=== PATIENT | female | born 1980 | race Caucasian/White ===

== ENCOUNTER 2016-09-24 12:52 | Emergency (ER) | payer MEDICAID, OTHER ==
[~2016-09-24] VITALS: Ht 165.1 cm; Wt 51.5 kg
[~2016-09-24 12:52] MED LIST: PRENAT PO
[2016-09-24 13:08] VITALS: Ht 165.1 cm; Wt 51.5 kg
[2016-09-24] MEDS ORDERED: ACETAMINOPHEN 325 MG TAB PO ONE (15:00)
--- NOTE | 2016-09-24 15:35 | RADRPT ---
PROCEDURE: XR Cervical Spine. CLINICAL INDICATION: Neck pain TECHNIQUE: 4 views of the cervical spine were performed. [facility] COMPARISON: None. FINDINGS: The normal cervical lordosis is well maintained. Alignment is intact. There is no evidence of acut e fracture or dislocation. Vertebral body heights are well maintained. Intervertebral disc heights are well maintained. The odontoid is well centered within the lateral masses of C1. The preverteb ral soft tissues are within normal limits. IMPRESSION: 1. Unremarkable cervical spine x-rays series. RPTAT: KK .Dhruv Cobb MD, MD Date Time Electronically viewed and signed by .Dhruv Cobb MD, MD on 09/24/2016 15:35 .B/
[2016-09-24] MEDS ORDERED: TRAM50TA2 PO (15:52)
[2016-09-24] MEDS ORDERED: CYCL-319 PO (15:52)
--- NOTE | 2016-09-24 15:55 | ERD ---
ER Documentation Chief Complaint Date/Time DATE: 09/24/16 TIME: 15:53 Chief Complaint NUMBNESS IN RIGHT LEG WITH TINGLING X 3 WEEKS,W/ RT ARM HAND TINGLING TODAY HPI This 36-year-old female complains of some paresthesias in her right hand and intermittently in her right leg. She has a history of trauma. She does have some pain in her neck as well. She denies any fevers, vomiting, shortness breath or chest pain. She denies bowel or bladder incontinence. Patient is worried that it might be related to high cholesterol and is worried that she has not had it checked in a while. ROS All systems reviewed and are negative except as per history of present illness. Medications Home Meds Active Scripts Cyclobenzaprine Hcl* (Cyclobenzaprine Hcl*) 10 Mg Tablet, 10 MG PO TID, #15 TAB Prov:BERNA LUX MD 09/24/16 Tramadol HCl (Tramadol HCl) 50 Mg Tablet, 50 MG PO Q4 Y for PAIN, #20 TAB Prov:BERNA LUX MD 09/24/16 Reported Medications Multivit/Min/Fol Ac/Iron/Pren* ( S*) 1 Tab Tab, 1 TAB PO DAILY, TAB 02/02/16 Allergies Allergies: Coded Allergies: Penicillins (Verified Allergy, Intermediate, SHORT OF BREATH, 09/24/16) PMhx/Soc Medical and Surgical Hx: pt denies Surgical Hx History of Surgery: No Anesthesia Reaction: No Hx Neurological Disorder: No Hx Respiratory Disorders: No Hx Cardiac Disorders: Yes (hypercholesterolemia) Hx Psychiatric Problems: No Hx Miscellaneous Medical Probl: No Hx Alcohol Use: No Hx Substance Use: No Hx Tobacco Use: No Smoking Status: Never smoker Physical Exam Vitals Vital Signs Date Time Temp Pulse Resp B/P Pulse Ox O2 Delivery O2 Flow Rate FiO2 09/24/16 13:08 98.2 73 20 126/62 100 Physical Exam Const: [] Alert, [id number] per Head: Atraumatic Eyes: Normal Conjunctiva ENT: Normal External Ears, Nose and Mouth. Neck: Full range of motion..~ No meningismus. Mild pain in the base of the right cervical paraspinous muscles without midline tenderness or deformities. Resp: Clear to auscultation bilaterally Cardio: Regular rate and rhythm, no murmurs Abd: Soft, non tender, non distended. Normal bowel sounds Skin: No petechiae or rashes Back: No midline or flank tenderness Ext: No cyanosis, or edema Neur: Awake and alert. Cranial nerves II through XII grossly intact. Normal gait. No cerebellar signs Psych: Normal Mood and Affect Results 24 hrs Current Medications Medications (Trade) Dose Ordered Sig/Jonn Route PRN Reason Start Time Stop Time Status Last Admin Dose Admin Acetaminophen (Tylenol Tab) 650 mg ONCE ONCE PO 09/24/16 15:00 09/24/16 15:01 DC Procedures/MDM X-ray C spine 3V Interpreted by me: Bones: [No fracture] Joints: [No dislocation] Foreign body: [None]. Impression have a normal C-spine x-ray Patient was given Tylenol for pain. Patient has paresthesias in the right upper and right lower extremity is intermittently associated with some neck discomfort. I suspect she has cervical radicular symptoms. Signs and symptoms do not suggest myelopathy, epidural abscess, cauda equina syndrome or neurologic deficit. She will treated with ibuprofen and further observation at home. Patient is advised to follow-up with primary doctor for cholesterol testing and primary care. She should have the ER for new or worsening symptoms Departure Diagnosis: Primary Impression: Radicular pain Additional Impression: Numbness Condition: Stable Patient Instructions: Radiculopathy, Cervical, Paraesthesias Referrals: [facility] Usted se parish hecho un examen mdico de control que le indica que no est en stefanie condicin que requiera tratamiento urgente en el Departamento de Emergencia. Un estudio ms profundo y el tratamiento de parmar condicin pueden esperar sin ningn riesgo hasta que usted sea atendida/o en el consultorio de parmar mdico o stefanie cl porter. Es responsabilidad suya arreglar stefanie tomas para el seguimiento del zuleima. MANEJO DE CONDICIONES NO URGENTES EN EL FUTURO 1) Si usted tiene un mdico de atencin primaria: Usted debera llamar a parmar mdico de atencin primaria antes de venir al departamento de emergencia. Despus de las horas de consultorio, parmar doctor o parmar asociado/a est disponible por telfono. El mdico o enfermero de tramaine en el servicio telefnico puede asesorarle por rocco medio para atender el problema, o zuleima contrario se puede programar stefanie tomas. 2) Si usted no tiene un mdico de atencin primaria: Llame al mdico o clnica de referencia que aparece abajo eliane las horas de consultorio para hacer stefanie tomas para que le vean. CLINICAS: [place] [id number] [phone] [facility] [phone] [place] [address] [phone] [place] [address] [phone] [place] [address] [phone] [facility]. [phone] [address] Additional Instructions: PROBABLAMENTE SIMPTOMAS ES DEL NERVIO DE LA NUCHA. Examines normal hoy. Cheque otro vez con parmar doctor primario en el proximo martinez or regresa para mas o nueva simptomas. CONTINUA IBUPROFEN CADA 6 HORAS. BERNA LUX MD September 24, 2016 15:55
[2016-09-24] MEDS ORDERED: IBUP400T22 PO (15:56)
== END 2016-09-24 16:09 | disposition home or self-care (01) ==
LOC: FTE 12:52
DX: M54.12 Radiculopathy, cervical region (principal)
CPT/HCPCS: 72040; Z7610

== ENCOUNTER 2017-04-01 18:18 | Emergency (ER) | payer MEDICAID, OTHER ==
[~2017-04-01] VITALS: Ht 170.2 cm; Wt 70.0 kg
[~2017-04-01 18:18] MED LIST changes: +IBUP400T22 PO
[2017-04-01 18:29] VITALS: Ht 170.2 cm; Wt 70.0 kg
[2017-04-01] MEDS ORDERED: SOD CHLORIDE 0.9% 1,000 ML IV STA ×2 (18:44→19:28)
[2017-04-01] MEDS ORDERED: IBUPROFEN 800 MG TAB PO ONE (19:00)
[2017-04-01 19:04] LABS: ABNORMAL IP MESSAGE 1; BASOPHILS % 0.1 % (0.0-2.0); HEMATOCRIT 37.1 % (37.0-47.0); HEMOGLOBIN 12.9 g/dl (12.0-16.0); LYMPHOCYTES # 0.3 10^3/ul (0.8-2.9); LYMPHOCYTES % 2.8 % (15.0-51.0); MEAN CORPUSCULAR HGB CONC 34.8 g/dl (32.0-37.0); MEAN CORPUSCULAR VOLUME 86.3 fl (82.0-101.0); MEAN PLATELET VOLUME 10.1 fl (7.4-10.4); MONOCYTE # 0.4 10^3/ul (0.3-0.9); MONOCYTES % 4.2 % (0.0-11.0); NEUTROPHIL # 9.7 10^3/ul (1.6-7.5); NEUTROPHILS % 92.4 % (39.0-77.0); PLATELET COUNT 158 10^3/UL (140-415); RED CELL DISTRIBUTION WIDTH 13.2 % (11.5-14.5); WHITE BLOOD COUNT 10.5 10^3/ul (4.8-10.8)
[2017-04-01 19:08] LABS: POSITIVE DIFF @See below
[2017-04-01 19:26] LABS: ALBUMIN 4.8 g/dl (3.3-4.9); ALBUMIN/GLOBULIN RATIO 1.77; BILIRUBIN,INDIRECT 1.7 mg/dl (0-1.1); BILIRUBIN,TOTAL 1.7 mg/dl (0.2-1.3); CALCIUM 9.7 mg/dl (8.4-10.2); CREATININE 0.69 mg/dl (0.44-1.00); POTASSIUM 3.5 mmol/L (3.5-5.1); TOTAL PROTEIN 7.5 g/dl (6.1-8.1)
[2017-04-01] MEDS ORDERED: CEFTRIAXONE 1 GM/50 ML (PMX) 50 ML IVPB ONE (19:30)
--- NOTE | 2017-04-01 19:35 | ERD ---
ER Documentation Chief Complaint Chief Complaint HAS NUMBNESS IN HER HPI This is a 36-year-old female who presents to the emergency room for evaluation of breast pain. The patient states that she is breast-feeding at this time and states that she noticed pain in both breasts and came to the ER today for evaluation. She states the pain in the left breast is slightly worse than the pain in the right, states that she did have a fever today and took Tylenol. She denies any medical problems and came to the ER today for evaluation. She denies any drainage from the breast, denies any chills and denies any aggravating or relieving factors for her symptoms at this time. She describes her pain as an achy pain rated at 2/10 currently ROS All systems reviewed and are negative except as per history of present illness. Medications Home Meds Active Scripts Ibuprofen* (Motrin*) 400 Mg Tab, 400 MG PO Q6, #20 TAB Prov:BERNA LUX MD 09/24/16 Reported Medications Multivit/Min/Fol Ac/Iron/Pren* ( S*) 1 Tab Tab, 1 TAB PO DAILY, TAB 02/02/16 Allergies Allergies: Coded Allergies: Penicillins (Verified Allergy, Intermediate, SHORT OF BREATH, 09/24/16) PMhx/Soc History of Surgery: No Anesthesia Reaction: No Hx Neurological Disorder: No Hx Respiratory Disorders: No Hx Cardiac Disorders: Yes (hypercholesterolemia) Hx Psychiatric Problems: No Hx Miscellaneous Medical Probl: No Hx Alcohol Use: No Hx Substance Use: No Hx Tobacco Use: No Smoking Status: Never smoker Physical Exam Vitals Vital Signs Date Time Temp Pulse Resp B/P Pulse Ox O2 Delivery O2 Flow Rate FiO2 04/01/17 18:29 99.5 131 15 119/75 100 Physical Exam INITIAL VITAL SIGNS: Reviewed by me GENERAL: The patient is well developed and appropriate for usual state of health in no apparent distress HEENT: Pupils equal, round, and reactive to light. EOMI. There is no scleral icterus. NECK: C-spine is soft and supple, there is no meningismus. There is no cervical lymphadenopathy. LUNGS: Clear to auscultation bilaterally. There are no rales, wheezes or rhonchi. HEART: Tachycardic, no murmurs, clicks, rubs or gallops. ABDOMEN: Soft, non-tender, non-distended. There are bowel sounds in all four quadrants. No rebound or guarding. EXTREMITIES: There is no peripheral cyanosis or edema. No focal swelling or erythema. NEUROLOGICAL: The patient moves all four extremities with 5/5 strength. Cranial nerves II - XII are intact. Normal gait. Alert and oriented SKIN: Mild erythema noted about the left areola, no abscess formation, no inverted nipple, no drainage, there is no apparent rash or petechiae. HEME/LYMPHATIC: There is no evidence of excessive bruising or lymphedema. PSYCHIATRIC: The patient is moderately anxious Result Diagram: 04/01/17184404/01/171844 Results 24 hrs Laboratory Tests Test 04/01/17 18:45 White Blood Count 10.510^3/ul Red Blood Count 4.3010^6/ul Hemoglobin 12.9g/dl Hematocrit 37.1% Mean Corpuscular Volume 86.3fl Mean Corpuscular Hemoglobin 30.0pg Mean Corpuscular Hemoglobin Concent 34.8g/dl Red Cell Distribution Width 13.2% Platelet Count 08934^3/UL Mean Platelet Volume 10.1fl Neutrophils % 92.4% Lymphocytes % 2.8% Monocytes % 4.2% Eosinophils % 0.0% Basophils % 0.1% Nucleated Red Blood Cells % 0.0/100WBC Neutrophils # 9.710^3/ul Lymphocytes # 0.310^3/ul Monocytes # 0.410^3/ul Eosinophils # 0.010^3/ul Basophils # 0.010^3/ul Nucleated Red Blood Cells # 0.010^3/ul Sodium Level 139mmol/L Potassium Level 3.5mmol/L Chloride Level 102mmol/L Carbon Dioxide Level 21mmol/L Anion Gap 20 Blood Urea Nitrogen 11mg/dl Creatinine 0.69mg/dl Glucose Level 113mg/dl Calcium Level 9.7mg/dl Total Bilirubin 1.7mg/dl Direct Bilirubin 0.00mg/dl Indirect Bilirubin 1.7mg/dl Aspartate Amino Transf (AST/SGOT) 22IU/L Alanine Aminotransferase (ALT/SGPT) 27IU/L Alkaline Phosphatase 67IU/L Total Protein 7.5g/dl Albumin 4.8g/dl Globulin 2.70g/dl Albumin/Globulin Ratio 1.77 Current Medications Medications (Trade) Dose Ordered Sig/Jonn Route PRN Reason Start Time Stop Time Status Last Admin Dose Admin Sodium Chloride (NS) 1,000 ml @ 1,000 mls/hr Q1H STAT IV 04/01/17 18:44 04/01/17 19:43 04/01/17 19:21 Ibuprofen 800 mg 800 mg ONCE ONCE PO 04/01/17 19:00 04/01/17 19:01 DC 04/01/17 19:21 Ceftriaxone Sodium 50 ml @ 100 mls/hr ONCE ONCE IVPB 04/01/17 19:30 04/01/17 19:59 Sodium Chloride (NS) 1,000 ml @ 1,000 mls/hr Q1H STAT IV 04/01/17 19:28 04/01/17 20:27 Procedures/MDM Chest X-ray 1V Interpreted by me: Soft Tissue: No acute abnormalities Bones: No acute abnormalities Mediastinum/Cardiac Silhouette/Lungs: [No acute abnormalities] This 36-year-old female presents to the emergency room for evaluation of breast pain. This patient is breast-feeding at this time and states that she did have a fever yesterday. On my examination this patient is afebrile, however she was tachycardic and moderately anxious. Lab work was obtained which does not show any sign of leukocyte ptosis. Her chest x-ray is clear, influenza is negative at this time. The patient was given 2 L of IV fluid for tachycardia. Her heart rate is now 100 bpm down from 131 bpm. She was given 1 g Rocephin. The patient likely suffering from mastitis without dissemination of infection. She was advised to continue breast-feeding and she will be discharged home at this time with a prescription for Keflex. Patient is okay to plan of care and was advised she can return to the ER any moment for reevaluation if her symptoms worsen and she verbalized understanding. Departure Diagnosis: Primary Impression: Acute mastitis Condition: Stable GIOVANYFRIEDA CAMARILLOTALITA JETT Apr 01, 2017 19:35
[2017-04-01] MEDS ORDERED: CEPH-443 PO (19:36)
--- NOTE | 2017-04-01 20:02 | RADRPT ---
PROCEDURE: XR Chest. CLINICAL INDICATION: Fever, cough TECHNIQUE: 2 frontal views of the chest COMPARISON: No prior study is available for comparison. FINDINGS: The lungs are clear. The heart size is normal. There is no pleural effusion. There is no pneumothorax. There is no acute osseous abnormality. IMPRESSION: 1. No acute cardiopulmonary findings. RPTAT: UU .Jonathon Garcia MD, MD Date Time Electronically viewed and signed by .Jonathon Garcia MD, on 04/01/2017 20:01 .K/
[2017-04-01 20:12] LABS: ADD UMIC YES; UR ASCORBIC ACID NEGATIVE (NEGATIVE); UR BILIRUBIN (Dip) NEGATIVE (NEGATIVE); UR BLOOD (Dip) 1+ mg/dL (NEGATIVE); UR CLARITY CLEAR (CLEAR); UR COLOR COLORLESS (YELLOW); UR GLUCOSE (Dip) NEGATIVE (NEGATIVE); UR KETONES (Dip) 1+ mg/dL (NEGATIVE); UR LEUKOCYTE ESTERASE (Dip) NEGATIVE Leu/ul (NEGATIVE); UR NITRITE (Dip) NEGATIVE (NEGATIVE); UR RBC 0 /HPF (0-5); UR SPECIFIC GRAVITY (Dip) 1.002 (1.003-1.030); UR TOTAL PROTEIN (Dip) NEGATIVE (NEGATIVE); UR UROBILINOGEN (Dip) NEGATIVE (NEGATIVE)
[2017-04-01] MEDS ORDERED: ACET-141 PO (20:52)
[2017-04-01 21:00] VITALS: BP 103/66; PULSE 98; RESP 16; TEMP 97.8
== END 2017-04-01 21:24 | disposition home or self-care (01) ==
LOC: E/R 18:18
DX: N61.0 Mastitis without abscess (principal); R40.2252 Coma scale, best verbal response, oriented, at arrival to emergency department; R40.2142 Coma scale, eyes open, spontaneous, at arrival to emergency department; R40.2362 Coma scale, best motor response, obeys commands, at arrival to emergency department
CPT/HCPCS: 71010; 80053; 81001; 85025; 87400; 96374; J0696; J7030; Z7502; Z7610

== ENCOUNTER 2018-05-27 10:17 | Emergency (ER) | payer OTHER ==
[~2018-05-27] VITALS: Ht 167.6 cm; Wt 52.8 kg
[~2018-05-27 10:17] MED LIST changes: +ACET-141 PO; +CEPH-443 PO; +IBUP-1561 PO; -IBUP400T22 PO; -PRENAT PO
[2018-05-27 10:22] VITALS: Ht 167.6 cm; Wt 52.8 kg
[2018-05-27] MEDS ORDERED: IBUP200C11 PO (11:14)
[2018-05-27] MEDS ORDERED: ATOR20TA38 PO (11:15)
[2018-05-27] MEDS ORDERED: ASPI325T30 PO (11:15)
[2018-05-27] MEDS ORDERED: LORA1TAB PO (11:15)
[2018-05-27] MEDS ORDERED: BRIV100T PO (11:16)
[2018-05-27] MEDS ORDERED: CLOB20TA PO (11:16)
[2018-05-27] MEDS ORDERED: CLOB10TA PO (11:16)
[2018-05-27] MEDS ORDERED: HYDR-4011 PO (11:17)
[2018-05-27] MEDS ORDERED: DEXA2TAB PO (11:17)
[2018-05-27] MEDS ORDERED: LACO100T3 PO (11:18)
[2018-05-27] MEDS ORDERED: MEMA10TA PO (11:19)
[2018-05-27] MEDS ORDERED: METO-335 PO (11:20)
[2018-05-27] MEDS ORDERED: POLY17PO6 PO (11:21)
[2018-05-27] MEDS ORDERED: ONDA8TAB83 PO (11:23)
[2018-05-27] MEDS ORDERED: TEMO100C13 PO (11:24)
[2018-05-27] MEDS ORDERED: RANI150T5 PO (11:24)
[2018-05-27 13:04] VITALS: BP 132/72; PULSE 85; RESP 18
--- NOTE | 2018-05-27 13:59 | ERD ---
ER Documentation Chief Complaint Chief Complaint LEFT ARM NUMBNESS HPI Patient is a 38-year-old female with no medical problems who presents with numbness. She said that 3 days ago she started with numbness while she was sleeping. It was in her bilateral arms and then her left leg. Last night her left arm went numb again. He tried a hot shower and felt better. She has no slurred speech. She thinks this is related to poor circulation. Upon review of old medical records this is the patient's third visit to the ER since 2017. She does not remember the name of her primary doctor. ROS All systems reviewed and are negative except as per history of present illness. Medications Home Meds Discontinued Reported Medications Temozolomide (Temozolomide) 100 Mg Capsule, 100 MG PO QPM, CAP 05/27/18 Ranitidine Hcl* (Ranitidine Hcl*) 150 Mg Tablet, 150 MG PO HS, #30 TAB 05/27/18 Ondansetron Hcl* (Ondansetron Hcl*) 8 Mg Tablet, 8 MG PO Q6H PRN for NAUSEA AND OR VOMITING, TAB 05/27/18 Polyethylene Glycol* (Miralax*) 17 Gm Powd.pack, 17 GM PO DAILY PRN for CONSTIPATION, #30 PACKET 05/27/18 Metoprolol Succinate* (Toprol XL*) 25 Mg Tab.sr.24h, 12.5 MG PO DAILY, #30 TAB 05/27/18 Memantine* (Namenda*) 10 Mg Tablet, 10 MG PO BID, #60 TAB 05/27/18 Lacosamide (Vimpat) 100 Mg Tablet, 100 MG PO BID, TAB 05/27/18 Hydrocodone/Acetaminophen ([place] 5-325 Tablet) 1 Each Tablet, 1 EACH PO DAILY PRN for SEVERE PAIN LEVEL 7-10, TAB 05/27/18 Dexamethasone* (Dexamethasone*) 2 Mg Tablet, 2 MG PO DAILY, TAB 05/27/18 Clobazam (Onfi) 20 Mg Tablet, 20 MG PO QPM, TAB 05/27/18 Clobazam (Onfi) 10 Mg Tablet, 10 MG PO QAM, TAB 05/27/18 Brivaracetam (Briviact) 100 Mg Tablet, 100 MG PO BID, TAB 05/27/18 Atorvastatin Calcium* (Atorvastatin Calcium*) 20 Mg Tablet, 20 MG PO QHS, #30 TAB 05/27/18 Lorazepam* (Lorazepam*) 1 Mg Tablet, 1 MG PO Q6 PRN for ANXIETY, #60 TAB 05/27/18 Aspirin* (Aspirin*) 325 Mg Tablet, 325 MG PO DAILY, TAB 05/27/18 Ibuprofen* (Advil*) 200 Mg Capsule, 200 MG PO Q6H PRN for PAIN, CAP 05/27/18 Acetaminophen* (Acetaminophen*) 500 MG Extra Strength Tablet, 500 MG PO Q4H PRN for PAIN AND OR ELEVATED TEMP, TAB 04/01/17 Discontinued Scripts Cephalexin* (Keflex*) 500 Mg Capsule, 500 MG PO TID for 7 Days, CAP Prov:KAVEH SILVERIO DO 04/01/17 Ibuprofen* (Motrin*) 400 Mg Tab, 400 MG PO Q6, #20 TAB Prov:BERNA LUX MD 09/24/16 Allergies Allergies: Coded Allergies: Penicillins (Unverified Allergy, Intermediate, SHORT OF BREATH, 04/01/17) PMhx/Soc Medical and Surgical Hx: pt denies Medical Hx History of Surgery: No Anesthesia Reaction: No Hx Neurological Disorder: No Hx Respiratory Disorders: No Hx Cardiac Disorders: Yes (hypercholesterolemia) Hx Psychiatric Problems: No Hx Miscellaneous Medical Probl: No Hx Alcohol Use: No Hx Substance Use: No Hx Tobacco Use: No Smoking Status: Never smoker FmHx Family History: coronary disease Physical Exam Vitals Vital Signs Date Temp Pulse Resp B/P (MAP) Pulse Ox O2 O2 Flow FiO2 Time Delivery Rate 05/27/18 98.6 85 18 132/72 100 Room Air 13:04 (92) 05/27/18 98.6 87 19 137/73 100 10:22 (94) Physical Exam Const: No acute distress Head: Atraumatic Eyes: Normal Conjunctiva ENT: Normal External Ears, Nose and Mouth. Neck: Full range of motion. No meningismus. Resp: Clear to auscultation bilaterally Cardio: Regular rate and rhythm, no murmurs Abd: Soft, non tender, non distended. Normal bowel sounds Skin: No petechiae or rashes, good capillary refill in the bilateral upper extremities, 2+ radial pulses Back: No midline or flank tenderness Ext: No cyanosis, or edema Neur: Awake and alert Psych: Normal Mood and Affect Results 24 hrs Laboratory Tests Test 05/27/18 11:30 05/27/18 12:18 Bedside Glucose 92 mg/dL POC Beta HCG, Qualitative NEGATIVE Procedures/MDM EKG read by me: Rate/Rhythm: Regular rate and rhythm at a normal rate Intervals: Normal Impression: No evidence of ischemia or arrhythmia Accu-Chek normal. test negative. Patient is a 38-year-old female who presents with paresthesias. There is no sign of circulation compromise at this time. She has good capillary refill and equal pulses bilaterally. The patient has a normal EKG and a normal Accu-Chek. test was negative. The patient will be discharged home and can follow-up with her primary doctor within 1 week. She can return sooner for any worsening symptoms. Departure Diagnosis: Primary Impression: Arm paresthesia, right Additional Impressions: Numbness Arm paresthesia, left Condition: Fair Patient Instructions: Paraesthesias Referrals: Your doctor Additional Instructions: Llame al doctor nomedmund story (Referral Sources) MAANA y melyssa stefanie KAROLINA PARA DENTRO DE STEFANIE SEMANA. Dgale a la secretaria que nosotros le instruimos hacer esta karolina.Avise o llame si parmar condicin se empeora antes de la karolina. KENDALL CANAS MD May 27, 2018 13:59
== END 2018-05-27 13:08 | disposition home or self-care (01) ==
LOC: E/R 10:17
DX: R20.2 Paresthesia of skin (principal); Z79.82 Long term (current) use of aspirin
CPT/HCPCS: 81025; 82962; 93005; Z7502